=== PATIENT | female | born 1990 | race Caucasian/White ===

== ENCOUNTER 2020-08-02 14:44 | Outpatient (CLI) | payer MEDICAID | END 2020-08-02 23:59 | disposition home or self-care (01) | LOC: LAB.N 14:44 | PROVIDERS: ATTEND Orthopaedic Surgery | DX: Z01.818 Encounter for other preprocedural examination (principal); Z20.822 Contact with and (suspected) exposure to COVID-19 ==

== ENCOUNTER 2020-08-07 12:38 | Day surgery (SDC) | payer MEDICAID ==
[~2020-08-07 12:38] MED LIST: ACETAMINOPHEN 1,000 MG/100 ML 100 ML IV ONE; CELECOXIB 100 MG CAPSULE PO ONE
--- NOTE | 2020-08-07 13:32 | ANESTHESIA ---
Pre-Anesthesia VS, & Labs - Diagnosis left carpal tunnel syndrome - Procedure left carpal tunnel release Vital Signs: Temp Pulse Resp BP Pulse Ox 36.7 C 67 16 127/73 97 08/07/20 13:07 08/07/20 13:07 08/07/20 13:07 08/07/20 13:07 08/07/20 13:07 Height: 5 ft 4 in Weight (kg): 95.3 kg Body Mass Index: 36.0 BMI Classification: Obese - NPO >8 hours - Is Patient ?: No, Waiver signed Home Medications and Allergies Home Medications: Ambulatory Orders Albuterol Sulfate [Proair Hfa Inhaler] 1 - 2 puffs INH Q4H PRN 08/06/20 Albuterol Sulfate [Proair Hfa Inhaler] 1 - 2 puffs INH Q4H PRN 08/06/20 Allergies/Adverse Reactions: Allergies Allergy/AdvReac Type Severity Reaction Status Date / Time steroids Allergy blisters Uncoded 08/06/20 11:37 in throat Anes History & Medical History - Anesthetic History Anesthesia Complications: reports: No previous complications - Medical History Cardiovascular: reports: Murmur Pulmonary: reports: Asthma Gastrointestinal: reports: Other Urinary: reports: None Musculoskeletal: reports: Other Endocrine/Autoimmune: reports: None Skin: reports: None Smoking Status: Never smoker History of Cancer?: No - Surgical History Eyes Ears Nose Throat (EENT): reports: Tonsil/Adenoidectomy Gynecologic: reports: section, Dilation and currettage Orthopedic: reports: Other Exam General: Alert Dental: WNL Mouth Opening: Greater than 4 Fingerbreadths Neck Mobility: Normal Mallampati classification: II Thyromental Distance: greater than 6 cm Respiratory: Lungs clear Cardiovascular: Other (05/08 murmur) Plan Anesthesia Type: MAC Consent for Procedure(s) Verified and Reviewed: Yes Code Status: Attempt Resuscitation ASA classification: 2-Mild systemic disease Is this case an emergency?: No
[2020-08-07] MEDS ORDERED: MIDAZOLAM 2 MG/2 ML VIAL ONE (14:43)
[2020-08-07] MEDS ORDERED: fentaNYL 100 MCG/2 ML VIAL ONE (14:44)
[2020-08-07] MEDS ORDERED: LIDOCAINE-MPF 2% 5 ML VIAL ONE (14:44)
[2020-08-07] MEDS ORDERED: PROPOFOL 500 MG/50 ML 500 MG/50 ML VIAL ONE (14:44)
[2020-08-07] MEDS ORDERED: LIDOCAINE 2%-EPI 1:100000 20 ML MDV ONE (15:05)
[2020-08-07] MEDS ORDERED: BUPIVACAINE 0.5% PF 10 ML VIAL ONE (15:55)
[2020-08-07] MEDS ORDERED: LIDOCAINE 2%-EPI 1:100000 20 ML MDV SUBQ ONE (16:09)
[2020-08-07] MEDS ORDERED: BUPIVACAINE 0.5% PF 10 ML VIAL SUBQ ONE (16:10)
[2020-08-07] MEDS ORDERED: BACITRACIN ZINC OINT 1 PACKET TOP ONE (16:17)
[2020-08-07] MEDS ORDERED: PROPOFOL 200 MG/20 ML VIAL IVP ONE (16:24)
--- NOTE | 2020-08-07 16:30 | OPERATIVE REPORT ---
Operative Report - General Procedure Date: 08/07/20 Planned Procedure: Left carpal tunnel release Pre-Op Diagnosis: Left carpal tunnel syndrome Procedure Performed: Left carpal tunnel release Post Op Diagnosis: Same as preoperative diagnosis - Procedure Note Primary Surgeon: Otto Marques MD Anesthesia Provider: Carol Marshall CRNA Anesthesia Technique: MAC Estimated Blood Loss (mL): 5 Indications: Is a 29-year-old woman with paresthesias in the classic median nerve dist ribution of thumb, index, long and ring finger. She had positive Tinel and Phalen sign to her left wrist and mildly abnormal nerve conduction studies and EMG. She had tried wrist splinting and other nonoperative modalities. Findings: The median nerve appeared to be grossly normal to visual inspection. There was a nonspecific tenosynovitis about the carpal tunnel. Complications: None - Other Other Information/Narrative: The patient was brought to the operating room placed in a supine position. A p neumatic tourniquet was applied to the proximal left arm over cast padding. The left upper extremity was prepped and draped in a sterile manner in the usual fashion. The left arm was placed over a arm extension table. A timeout procedure was done by the entire operating room team and all were in agreement. A 50-50 mixture of 2% lidocaine with epinephrine and half percent Marcaine was injected. A total of about 10 cc was utilized. Most the injection was in the subcutaneous tissues proximal and distal to the wrist flexor crease and an additional amount was placed in the carpal tunnel, ulnar to the palmaris longus tendon. After satisfactory anesthesia was achieved, an incision was made in line with the left hand third webspace beginning at the wrist flexor crease and extending it distally for approximately 3 cm. The subcutaneous fat and palmar aponeurosis were divided in line with the incision. 2 self-retaining retractors were inserted proximally and distally. An incision was made into the transverse carpal ligament proximally. A grooved retractor was then inserted beneath the transverse carpal ligament. The transverse carpal ligament was then divided from proximal to distal under direct visualization. Proximal release the transverse carpal ligament was also done with a grooved retractor. The tourniquet time was 5 minutes. The tourniquet was deflated and hemostasis was achieved electrocautery. The incisions were closed with 4-0 nylon vertical mattress suture. A bulky soft sterile hand dressing was applied to the left hand with Xeroform and bacitracin directly to the incision. The patient tolerated procedure well
[2020-08-07] MEDS ORDERED: LACTATED RINGERS 1,000 ML IV ONE (16:31)
[2020-08-07] MEDS ORDERED: HYDROcod/ACETAM 5/325 MG TABLET PO PRN (16:34)
[2020-08-07] MEDS ORDERED: KETOROLAC 15 MG/ML VIAL IVP STA (16:34)
--- NOTE | 2020-08-07 16:36 | ANESTHESIA POST OP EVALUATION ---
Anesthesia Post Eval - Post Anesthesia Eval Vitals: Last Vital Signs Temp 36.7 C 08/07/20 13:07 Pulse 67 08/07/20 13:07 Resp 16 08/07/20 13:07 BP 127/73 08/07/20 13:07 Pulse Ox 97 08/07/20 13:07 CV Function Including HR & BP: Stable Pain Control: Satisfactory Nausea & Vomiting: Negative Mental Status: Baseline Respiratory Status: Airway Patent Hydration Status: Satisfactory Anesthesia Complications: None
[2020-08-07] MEDS ORDERED: HYDROcod/ACETAM 5/325 MG TABLET ONE (16:54)
[2020-08-07] MEDS ORDERED: KETOROLAC 15 MG/ML VIAL ONE (16:54)
[2020-08-07 17:22] VITALS: BP 104/67
== END 2020-08-07 12:39 | disposition home or self-care (01) ==
LOC: SDS 12:38
PROVIDERS: ATTEND Orthopaedic Surgery
DX: G56.02 Carpal tunnel syndrome, left upper limb (principal); J45.909 Unspecified asthma, uncomplicated; R01.1 Cardiac murmur, unspecified; F17.290 Nicotine dependence, other tobacco product, uncomplicated; E66.9 Obesity, unspecified; Z68.36 Body mass index [BMI] 36.0-36.9, adult; Z79.51 Long term (current) use of inhaled steroids
CPT/HCPCS: 64721; A9270; J0131; J7120

== ENCOUNTER 2020-08-16 06:57 | Emergency (ER) | payer MEDICAID ==
--- NOTE | 2020-08-16 07:14 | ED Physician Documentation ---
PD HPI FEMALE - Stated complaint Stated Complaint: SPOTTING - Chief complaint Chief Complaint: Abd Pain - History obtained from History obtained from: Patient - History of Present Illness Timing - onset: Today Timing - duration: Hours Timing - details: Abrupt onset, Still present Associated symptoms: Vaginal bleeding (onset of spotting blood this morning. She is 4 weeks EGA by dates with urine test HCG confirming at home and in office earlier this week.), Other (some vaginal discomfort with wiping today.). No: Fever, Vaginal pain, Vaginal discharge Contributing factors: (4 weeks by dates), Sexually active. 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), P (2), Miscarriage(s) (2) Similar symptoms before: Diagnosis (had similar with miscarriage, but also had spotting early with her son's .) Recently seen: Clinic (had urine preg test that was positive.) Review of Systems Constitutional: denies: Fever, Chills Nose: denies: Rhinorrhea / runny nose, Congestion Throat: denies: Sore throat Respiratory: denies: Cough GI: denies: Nausea, Vomiting, Diarrhea : reports: Dysuria, Vaginal bleeding, Now EGA (4 weeks) Skin: denies: Rash Musculoskeletal: denies: Neck pain, Back pain Neurologic: denies: Generalized weakness, Near syncope PD PAST MEDICAL HISTORY - Past Medical History Cardiovascular: Murmur Respiratory: Asthma Endocrine/Autoimmune: None GI: Other : None HEENT: Chronic vision loss Psych: Depression, Anxiety, Panic attacks, Post traumatic stress disorder, Claustrophobia Musculoskeletal: Other Derm: None - Past Surgical History Ortho: Other /WORM PACKER: section, Dilation and currettage HEENT: Tonsil/Adenoidectomy - Present Medications Home Medications: Ambulatory Orders Medication Instructions Recorded Confirmed Albuterol Sulfate [Proair Hfa 1 - 2 puffs INH Q4H PRN 08/06/20 08/16/20 Inhaler] No122/Iron/Folic Acid 1 tab PO DAILY 08/16/20 08/16/20 [ Multi Tablet] - Allergies Allergies/Adverse Reactions: Allergies Allergy/AdvReac Type Severity Reaction Status Date / Time steroids Allergy blisters Uncoded 08/16/20 07:06 in throat - Social History Smoking Status: Never smoker PD ED PE NORMAL - Vitals Vital signs reviewed: Yes - General General: Alert and oriented X 3, No acute distress, Well developed/nourished - Cardiac Cardiac: RRR, No murmur - Respiratory Respiratory: Clear bilaterally - Abdomen Abdomen: Normal bowel sounds, Soft, Non tender, Non distended, No organomegaly - Female Female : Deferred - Rectal Rectal: Deferred - Back Back: No CVA TTP - Derm Derm: Normal color, Warm and dry - Extremities Extremities: Normal ROM s pain - Neuro Neuro: Alert and oriented X 3, No motor deficit, Normal speech Results - Vitals Vitals: Vital Signs - 24 hr 08/16/20 08/16/20 07:00 09:16 Temperature 36.9 C Heart Rate 100 79 Respiratory 16 16 Rate Blood Pressure 145/110 H 128/81 H O2 Saturation 98 98 Oxygen O2 Source Room air - Labs Labs: Laboratory Tests 08/16/20 08/16/20 08/16/20 07:09 07:50 07:50 WBC 8.5 RBC 4.92 Hgb 13.9 Hct 40.3 MCV 81.9 MCH 28.3 MCHC 34.5 RDW 13.8 Plt Count 204 MPV 10.3 Neut # (Auto) 6.7 H Lymph # (Auto) 1.2 L [place] # (Auto) 0.5 Eos # (Auto) 0.0 Baso # (Auto) 0.0 Absolute Nucleated RBC 0.00 Nucleated RBC % 0.0 HCG, Quant 53.39 Urine Color LIGHT YELLOW Urine Clarity CLEAR Urine pH 6.0 Ur Specific [place] <=1.005 Urine Protein NEGATIVE Urine Glucose (UA) NEGATIVE Urine Ketones NEGATIVE Urine Occult Blood SMALL H Urine Nitrite NEGATIVE Urine Bilirubin NEGATIVE Urine Urobilinogen 0.2 (NORMAL) Ur Leukocyte Esterase NEGATIVE Urine RBC 0-5 Urine WBC 0-3 Ur Squamous Epith Cells MOD Squamous H Urine Bacteria Few Ur Microscopic Review INDICATED Urine Culture Comments NOT INDICATED - Rads (name of study) OB U/S Radiology: Prelim report reviewed (NO IUP nor adnexal findings. Most likely c/w too early to detect. Will need to follow quants. ), See rad report PD MEDICAL DECISION MAKING - ED course Complexity details: reviewed results, considered differential (Is here with some cramping and vaginal spotting. Will get quantitative hCG as well as pelvic ultrasound to evaluate for any tubal abnormalities and try to verify intrauterine. Her quant is low so may not be able to see well at this juncture. 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 No need for Rhogam at this point. ) Departure - Departure Disposition: 01 Home, Self Care Clinical Impression: Vaginal bleeding during , Early stage of Condition: Stable Record reviewed to determine appropriate education?: Yes Follow-Up: Brandi Sylvester PA-C [Primary Care Provider] - Susana Weiss MD [Provider Admit Priv/Credential] - Comments: Stay well hydrated. Tylenol or ibuprofen if needed for pains or cramps. Follow-up with the [facility] office for repeat quant blood testing as ordered. R eturn if significant bleeding or other problems. No indication for RhoGam at this time. See how you do with repeat tests on follow up. Discharge Date/Time: 08/16/20 09:38
[2020-08-16 07:29] LABS: BILIRUBIN,URINE NEGATIVE (NEGATIVE); GLUCOSE, URINE (UA) NEGATIVE (NEGATIVE); KETONES,URINE (UA) NEGATIVE (NEGATIVE); LEUKOCYTE ESTERASE, URINE NEGATIVE (NEGATIVE); NITRITE,URINE NEGATIVE (NEGATIVE); OCCULT BLOOD,URINE SMALL (NEGATIVE); PROTEIN,URINE NEGATIVE (NEGATIVE); UROBILINOGEN,URINE 0.2 (NORMAL) E.U./dL (NORMAL)
[2020-08-16 07:41] LABS: CLARITY,URINE CLEAR (CLEAR); RBC,URINE 0-5 /HPF (0-5); WBC,URINE 0-3 /HPF (0-5)
[2020-08-16 07:42] LABS: BACTERIA,URINE Few /HPF (None Seen); SQUAMOUS EPITHELIAL CELL,UR MOD Squamous (<= Few)
[2020-08-16 07:54] LABS: BASOPHILS % (AUTO) 0.4 %; EOSINOPHILS % (AUTO) 0.2 %; HCT - HEMATOCRIT 40.3 % (37.0-47.0); HGB - HEMOGLOBIN 13.9 g/dL (12.0-16.0); LYMPHOCYTES # (AUTO) 1.2 10^3/uL (1.5-3.5); LYMPHOCYTES % (AUTO) 13.9 %; MEAN CORPUSCULAR HEMOGLOBIN 28.3 pg (27.0-31.0); MEAN CORPUSCULAR HGB CONC 34.5 g/dL (32.0-36.0); MEAN CORPUSCULAR VOLUME 81.9 fL (81.0-99.0); MEAN PLATELET VOLUME 10.3 fL (7.9-10.8); MONOCYTES # (AUTO) 0.5 10^3/uL (0.0-1.0); MONOCYTES % (AUTO) 5.9 %; NEUTROPHILS # (AUTO) 6.7 10^3/uL (1.5-6.6); NEUTROPHILS % (AUTO) 79.2 %; PLT - PLATELET COUNT 204 10^3/uL (130-450); RED BLOOD COUNT 4.92 10^6/uL (4.20-5.40); RED CELL DISTRIBUTION WIDTH 13.8 % (12.0-15.0); WHITE BLOOD COUNT 8.5 x10^3/uL (4.8-10.8)
[2020-08-16 09:17] VITALS: BP 128/81
--- NOTE | 2020-08-16 09:42 | Ultrasound Report ---
PROCEDURE: OB First Trimester INDICATIONS: 4-5 wks by dates; vag spotting/abd cramps OUTSIDE/PRIOR DATING DATA: Last menstrual period (LMP): 07/04/2020. LMP-based estimated date of delivery (ELINOR): 04/20/2021 assuming viable gestation. First dating scan (date and location): This study. Estimated date of delivery (ELINOR) from first dating scan: Gestation is not seen.. TECHNIQUE: Real-time scanning was performed of the fetus and maternal pelvic organs, with image documentation. COMPARISON: None FINDINGS: Embryo: An intrauterine gestational sac or gestation is not seen. Measurement variability in dating: +/- 4 weeks by LMP, +/- 7 days by mean sac diameter (use before 6 weeks gestation if crown-rump length not able to be measured), +/- 5 days by crown-rump length (6-12 weeks gestation). Maternal organs: Ovaries normal. IMPRESSION: An intrauterine gestational sac or gestation is not seen. No secondary evidence of ectopic is found within the peritoneal space. Please correlate with quantitative beta hCG values, and sequent ial evaluation may become necessary. Please note that the current findings by sonographic criteria do not entirely exclude presence of an ectopic gestation. Reviewed by: Luke James MD on 08/16/2020 9:41 AM PDT Approved by: Luke James MD on 08/16/2020 9:41 AM PDT Station ID: [id number]
--- NOTE | 2020-08-16 09:44 | Ultrasound Report ---
PROCEDURE: OB Transvaginal INDICATIONS: 4-5 wks by dates; vag spotting/abd cramps TECHNIQUE: Both transabdominal and transvaginal scanning were performed and have been dictated as a c ombined study under the first trimester gestation report from today. COMPARISON: None. FINDINGS: Please refer to the additional OB report from today for the combined study. IMPRESSION: Please refer to the additional OB report from today for the combined study. Reviewed by: Luke James MD on 08/16/2020 9:42 AM PDT Approved by: Luke James MD on 08/16/2020 9:42 AM PDT Station ID: [id number]
== END 2020-08-16 09:38 | disposition home or self-care (01) ==
LOC: ED 06:57
DX: O20.9 Hemorrhage in early pregnancy, unspecified (principal); Z3A.00 Weeks of gestation of pregnancy not specified
CPT/HCPCS: 36415; 81001; 81003; 84702; 85025; 87086; 99282; 99284